=== PATIENT | female | born 1970 | race Two or more races ===

== ENCOUNTER 2025-06-29 09:03 | Outpatient (AMB) | payer OTHER, SELFPAY ==
[2025-06-29 09:05] VITALS: BMI 25.5
--- NOTE | 2025-06-29 09:05 | A.PHYSOV_ITS ---
Vital Signs 06/29/25 09:05 Height 5 ft 1 in Weight 135 lb BMI 25.5 Intake Visit Reasons: 6W FUV Intake Note: Patient is a 54 year old female in office today for her 6 week follow up. Patient was given prednisone Retort Furnace Operator Required: No Allergies No Known Allergies Allergy (Verified 06/29/25 09:06) HPI Comments Details: History of Present Illness The patient is a 54-year-old female presenting with chronic left shoulder and arm pain. 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 The pain has been persistent and worsens with increased stress levels. She has undergone cervical epidural injection and left shoulder subacromial injection, which provided some relief. Buprenorphine patches have been introduced, resulting in a 30-40% reduction in pain levels. She also uses Methocarbamol at bedtime and supplements with turmeric. A cervical spine MRI in 2020 revealed bilateral neural foraminal narrowing at the C5-C6 level. She was previously started on an 18-day prednisone taper, which helped alleviate symptoms temporarily. The pain has since returned, with a noted shift to the right side. She continues to perform physician guided home ex ercises. The patient reports right elbow pain, which is aggravated by physical activities such as writing and carrying objects. Pain Description - Onset: Persistent pain in the left shoulder and arm - Quality: Worsens with stress and physical activity - Location: Initially left shoulder and arm, now also on the right side - Exacerbating factors: Stress, writing, carrying objects Results - Imaging: Cervical spine MRI shows bilateral neural foraminal narrowing at C5- C6 [facility] Medical History (Updated 06/29/25 @ 09:35 by Pablo Banuelos DO) Lateral epicondylitis of right elbow Cervical spinal stenosis Cervical radiculitis delivery delivered (Unknown) Surgical History (Updated 06/29/25 @ 09:11 by Alejandra Coe MA) History of appendectomy (Unknown) Hx of tubal ligation (Unknown) Social History Household Members: Spouse Alcohol intake: current Alcohol intake frequency: holidays/special occasions only Patient Tobacco Use Status: Never used Tobacco Current occupational status: employed Review of Systems Narrative Review of Systems - Musculoskeletal: Reports chronic left shoulder and arm pain, tendinitis - Neurological: Denies any neurological deficits Pain in the right elbow. Denies change in bowel bladder habits, denies fever or chills, denies uncontrolled depression or suicidal ideation. Physical Exam Exam Exam: Physical Exam - Neurological: Reflexes are fine, no significant findings noted Patient ambulates without antalgia. She was able to perform heel walk and toe walk. Neurological examination of upper and lower extremities was nonfocal. She demonstrated no upper motor neuron signs. Cervical rotation and side bending were slightly restricted on the right side. Examination of the right elbow reveals tenderness with palpation over lateral epicondylitis. Pain with resisted wrist extension. Vital Signs: BMI result Body Mass Index 25.5 Assessment & Plan Assessment & Plan (1) Cervical radiculitis: Code(s): M54.12 - Radiculopathy, cervical region Category: Medical (2) Cervical spinal stenosis: Code(s): M48.02 - Spinal stenosis, cervical region Category: Medical (3) Lateral epicondylitis of right elbow: Code(s): M77.11 - Lateral epicondylitis, right elbow Category: Medical Plan Pain Management - Affect: Increased pain with stress - Analgesia: Buprenorphine patches reduce pain by 30-40% - Adverse Effects: None reported - Activities of Daily Living: Pain affects ability to perform tasks such as writing and carrying objects - Aberrant Drug Related Behaviors: None reported Plan Patient was informed and verbally consented to the use of an ambient scribe for clinic note documentation during this visit. 1. Chronic Left Shoulder And Arm Pain The patient will continue using buprenorphine patches, which have reduced pain by 30-40%. Stretching exercises and ice packs are recommended to manage inflammation and pain. A tennis elbow strap is advised to alleviate pressure on the affected area. An MRI of the cervical spine will be repeated to assess the current status of neural foraminal narrowing. 2. Bilateral Neural Foraminal Narrowing At C5-C6 The patient will undergo a repeat MRI of the cervical spine to evaluate the progression of bilateral neural foraminal narrowing at C5-C6. Pain management will continue with buprenorphine patches and Methocarbamol at bedtime. 3. Tendinitis The patient is advised to perform regular stretching exercises and use ice packs to manage tendinitis. A tennis elbow strap is recommended to alleviate pressure and prevent exacerbation of symptoms. Discussion Notes I discussed with the patient the importance of continuing with the current pain management regimen, including buprenorphine patches and Methocarbamol, to manage her chronic pain effectively. We reviewed the need for regular stretching exercises and the use of ice packs to alleviate inflammation and pain associated with tendinitis. I recommended a repeat MRI of the cervical spine to monitor the progression of neural foraminal narrowing at C5-C6. Patient Instructions - Continue using buprenorphine patches as prescribed. - Perform stretching exercises regularly to manage tendinitis. - Use ice packs to reduce inflammation and pain. - Wear a tennis elbow strap during activities to alleviate pressure. - Schedule and attend the repeat MRI of the cervical spine. Orders: Orders MR cervical spine wo con Today M48.02 - Spinal stenosis, cervical region, M54.12 - Radiculopathy, cervical region Coding Level of Care Code Est Pt Level 4 (90425) Complex EM visit Add On G2211 Diagnoses Cervical radiculitis M54.12 Cervical spinal stenosis M48.02 Lateral epicondylitis of right elbow M77.11
--- OUTSIDE RECORDS SUMMARY | 2025-06-29 15:00 | XMS_ITS | Encounter Summary ---
Author Organization [facility] Address [address] [place] [address] Care Team Providers Care Acid Bleacher Name Role Phone Enriqueta Leger MD Primary Care Provider [phone] Reason for Referral * Imaging (Routine) - Pending Review Specialty Diagnoses / Procedures Referred By Vandana t Referred To Contact Radiology Diagnoses Gallbladder polyp Biliary colic Procedures NM Hepatobiliary System Imaging W Drug Kalli Samaniego MD [address] [place] [address] Phone: tel: fax: [facility] Referral ID Status Reason Start Date Expiration Date V isits Requested Visits Authorized [id number] Pending Review 06/29/2025 06/29/2026 1 1 Reason for Visit * Reason Comments Consult SWM * Consultation (Urgent) - Authorized Specialty Diagnoses / Procedures Referred By Vandana t Referred To Contact Bariatrics Diagnoses Calculus of gallbladder without cholecystitis without obstruction Enriqueta Leger MD [address] [place] [address] Phone: tel: fax: Kalli Samaniego MD [address] [address] Phone: tel: fax: Referral ID Status Reason Start Date Expiration Date Visits Requested Visits Authorized [id number] Authorized Specialty Services Required 5 06/22/2026 1 1 Encounter Details Date Type Department Care Team (Late st Contact Info) Description 06/29/2025 3:00 PM EST Consult Bariatric Surgery - [place] [address] [place] [address] Kalli Samaniego MD [address] [place] [address] Gallbladder polyp (Primary Dx); Biliary colic Social History Tobacco Use Types Packs/Day Years Used Date Smoking Tobacco: Never Smokeless Tobacco: Never Alcohol Use Standard Drinks/Week Comments No 0 (1 standard drink = 0.6 oz pur e alcohol) social Housing Instability Answer Date Recorde d Are you worried that in the next 2 months you may not have stable housing? No 09/14/2024 Food Access & Nutrition Answer Date Rec orded Do you have access to a vari ety of food including fruits and vegetables? Yes 09/14/2024 Health Literacy Answer Date Recorded How often do you need to hav e someone help you when you read instructions, pamphlets, or other written material from your doctor or pharmacy? Never 09/14/2024 Caregiver: How often do you need to have someone help you when you read instructions, pamphlets, or other written material from your doctor or pharmacy? Not on file 09/14/2024 Financial Risk Answer Date Recorded How hard is it for you to pa y for the very basics like food, housing, medical care, and air conditioning / heating? Somewhat hard 09/14/2024 Transportation Answer Date Recorded Has the lack of transportati on kept you from meetings, work, or from getting things needed for daily living? No Has the lack of transportati on kept you from medical appointments or from getting medications? No 09/14/2024 Social Isolation Answer Date Recorded How often do you feel lonely or isolated from th ose around you? Never 09/14/2024 Food Risk Answer Date Recorded Within the past 12 months we worried whether our food would run out before we got money to buy more. Sometimes true 025 Within the past 12 months th e food we bought just didn't last and we didn't have money to get more. Never true 09/14/2024 Dependent Care Answer Date Recorded Do you need help finding or paying for care for your loved ones. For example, child support agent or elderly care for an older adult? No 09/14/2024 Education Answer Date Recorded Do you think completing more education or training, like finishing a GED, going to college, or learning a trade, would be helpful for you? N/A 09/14/2024 Employment and Income Answer Date Recor ded During the last four weeks, have you been actively looking for work? No 09/14/2024 Living Situation Answer Date Recorded What is your living situation? Unrecognized valu e 09/14/2024 Comments No Sex and Gender Information Value Date Recorded Sex Assigned at Female 07/06/2024 12:40 PM EST Legal Sex Female 1:18 AM EST Gender Identity Female 07/06/2024 12:40 PM EST Sexual Orientation Straight 07/06/2024 12 :40 PM EST documented as of this encounter Last Filed Vital Signs Vital Sign Reading Time Taken Comments Blood Pressure 120/80 06/29/2025 3:05 PM EST Pulse 85 06/29/2025 3:05 PM EST Temperature 36.9 C (98.5 F) 06/29/2025 3:05 PM EST Respiratory Rate - - Oxygen Saturation - - Inhaled Oxygen Concentration - - Weight 64.1 kg (141 lb 6.4 oz) 06/29/2025 3:05 P M EST Height 152.4 cm (5') 06/29/2025 3:05 PM EST Body Mass Index 27.62 06/29/2025 3:05 PM EST documented in this encounter Plan of Treatment Upcoming Encounters Date Type Department Care Team (Late st Contact Info) Description 06/30/2025 7:15 AM EST Appointment Radiology Department - [address] [phone] 09/26/2025 9:00 AM EST Office Visit Adult Medicine [address] [phone] Enriqueta Leger MD [address], [place] 09/28/2025 9:00 AM EST Office Visit Gastroenterology - [address] [phone] Lulu Spence, [place] [address] [address] Scheduled Orders Name Type Priority Associated Diagnoses Orde r Schedule NM Hepatobiliary System Imaging W Drug Imaging Routine Gallbladder polyp Biliary colic Expected: 06/29/2025, Expires: 06/29/2026 documented as of this encounter Visit Diagnoses Diagnosis Gallbladder polyp- Primary Cholesterolosis of gallbladder Biliary colic Calculus of gallbladder without mention of cholecystitis or obstruction documented in this encounter Orders Outpatient Referral Count Last Ordered Date Fir st Ordered Date AMB REFERRAL TO GENERAL SURGERY 1 5 documented in this encounter Additional Health Concerns Assessment Noted Time PHQ-9 Depression Total Score: 0 01/27/20 25 9:57 AM EDT documented as of this encounter Care Teams Acid Bleacher Relationship Specialty Start Date End Date Enriqueta Leger MD [address], [place] PCP - General Internal Medicine 11/19/21 documented as of this encounter
--- OUTSIDE RECORDS SUMMARY | 2025-06-29 16:53 | XMS_ITS | Encounter Summary ---
Author Organization [facility] Address [address] [place] [address] Care Team Providers Care Upper Marker Name Role Phone Mary Lou Starks MD Primary Care Provider Un available Enriqueta Leger MD Primary Care Provider [phone] Encounter Details Date Type Department Care Team Description 07/20/2015 Release of Information Medical Records [address] [place] [id number] Abstract, Provider Social History Tobacco Use Types Packs/Day Years Used Date Smoking Tobacco: Never Smokeless Tobacco: Never Alcohol Use Standard Drinks/Week Comments No 0 (1 standard drink = 0.6 oz pur e alcohol) Sex Assigned at Date Recorded Female 03/11/2021 3:18 PM E DT Job Start Date Occupation Industry Not on file Not on file Not on file documented as of this encounter Plan of Treatment Not on file documented as of this encounter Visit Diagnoses Not on filedocumented in this encounter Additional Health Concerns Infection Onset Date Last Indicated Resolved Time COVID-19 04/29/2022 04/30/2022 documented as of this encounter Care Teams Upper Marker Relationship Specialty Start Date End Date Mary Lou Starks MD PCP - General Internal Medicine 09/21/14 Enriqueta Leger MD [address] [place] [address] PCP - General Internal Medicine 11/19/21 documented as of this encounter
--- OUTSIDE RECORDS SUMMARY | 2025-06-29 16:53 | XMS_ITS | Encounter Summary ---
Author Organization [facility] Address [address] [place] [address] Care Team Providers Care Silviculturist Name Role Phone Mary Lou Starks MD Primary Care Provider Un available Enirqueta Leger MD Primary Care Provider [phone] Encounter Details Date Type Department Care Team Description 03/23/2015 Air Defense Control Officer Report Medical Records [address] [place] [address] Zachery Calvo MD Social History Tobacco Use Types Packs/Day Years [...] documented as of this encounter Care Teams Silviculturist Relationship Specialty Start Date End Date Mary Lou Starks MD PCP - General Internal Medicine 09/21/14 Enriqueta Leger MD [address] [place] [phone] PCP - General Internal Medicine 11/19/21 documented as of this encounter
--- OUTSIDE RECORDS SUMMARY | 2025-06-29 16:53 | XMS_ITS | Encounter Summary ---
Author Organization [employer] [facility] Address [address] [place] [address] Care Team Providers Care Used Car Make Ready Worker Name Role Phone Enriqueta Leger MD Primary Care Provider [phone] Encounter Details Date Type Department Care Team Description 09/25/2022 Field Marketing Manager Report Medical Records [address] [place] [address] Maty Bennett PA Social History Tobacco Use Types Packs/Day Years Used Date Smoking Tobacco: Never Smokeless Tobacco: Never Alcohol Use Standard Drinks/Week Comments No 0 (1 standard drink = 0.6 oz pur e alcohol) occ Sex Assigned at Date Recorded Female 03/11/2021 3:18 PM E DT Job Start Date Occupation Industry Not on file Not on file Not on file COVID-19 Exposure Response Date Recorded In the last 10 days, have yo u been in contact with someone who was confirmed or suspected to have Coronavirus/COVID-19? No / Unsure 09/12/2022 8:40 AM EST documented as of this encounter Plan of Treatment Not on file documented as of this encounter Visit Diagnoses Not on filedocumented in this encounter Additional Health Concerns Infection Onset Date Last Indicated Resolved Time COVID-19 04/29/2022 04/30/2022 documented as of this encounter Care Teams Used Car Make Ready Worker Relationship Specialty Start Date End Date Enriqueta Leger MD [address] [place] [phone] PCP - General Internal Medicine 11/19/21 documented as of this encounter
--- OUTSIDE RECORDS SUMMARY | 2025-06-29 16:53 | XMS_ITS | Encounter Summary ---
Author Organization [facility] Address [address] [place] [address] Care Team Providers Care Operational Communication Chief Name Role Phone Enriqueta Leger MD Primary Care Provider [phone] Reason for Visit * Reason Onset Date Comments Mychart Rx Refill 09/10/2022 Encounter Details Date Type Department Care Team Description 09/10/2022 Refill Adult Medicine [address] [phone] Enriqueta Leger MD [address] [place] [phone] Mychart Rx Refill Social History Tobacco Use Types Packs/Day Years [...] AM EST documented as of this encounter Miscellaneous Notes * Telephone Encounter - Zoltan Rivera M.A. - 09/10/2022 10:10 AM EST Lab Results Component Value Date NA 139 12/04/2021 K 4.0 12/04/2021 CO2 26 12/04/2021 CL 106 12/04/2021 BUN 9 12/04/2021 CREAT 0.62 12/04/2021 GLU 109 12/04/2021 CA 9.4 12/04/2021 GFR > 60 12/04/2021 GERARDO w/PCP 12/04/2021 Next OV w/PCP 09/12/2022 Pt nds to continue w/future appt prior to further refills. documented in this encounter Plan of Treatment Not on file documented as of this encounter Visit Diagnoses Diagnosis Seasonal allergies Allergic rhinitis, cause unspecified documented in this encounter Additional Health Concerns Infection Onset Date Last Indicated Resolved Time COVID-19 04/29/2022 04/30/2022 documented as of this encounter Care Teams Operational Communication Chief Relationship Specialty Start Date End Date Enriqueta Leger MD [address] [place] [phone] PCP - General Internal Medicine 11/19/21 documented as of this encounter
--- OUTSIDE RECORDS SUMMARY | 2025-06-29 16:54 | XMS_ITS | Encounter Summary ---
Author Organization [facility] Address [address] [place] [address] Care Team Providers Care Canvas Cutter Hand Name Role Phone Mary Lou Starks MD Primary Care Provider Un available Enriqueta Leger MD Primary Care Provider [phone] Reason for Visit * Reason Onset Date Comments Orders Call 07/08/2016 Encounter Details Date Type Department Care Team Description 07/08/2016 Telephone Medicine/Pediatrics - [address] [phone] Mary Lou Starks MD Orders Call Social History Tobacco Use Types Packs/Day Years Used Date Smoking Tobacco: Never Smokeless Tobacco: Never Alcohol Use Standard Drinks/Week Comments No 0 (1 standard drink = 0.6 oz pur e alcohol) Sex Assigned at Date Recorded Female 03/11/2021 3:18 PM E DT Job Start Date Occupation Industry Not on file Not on file Not on file documented as of this encounter Miscellaneous Notes * Telephone Encounter - Maureen LujanPChristianaNChristiana - 07/08/2016 1:09 PM EST Radha notified * Telephone Encounter - Mary Lou Starks MD - 07/08/2016 12:58 PM EST Cierra, thanks. * Telephone Encounter - Maureen LujanPChristianaNChristiana - 07/08/2016 9:08 AM EST Order set up * Telephone Encounter - Allison Vicente - 07/08/2016 9:03 AM EST Patient had a tb test done at the [facility] in [email or web address] and was read as positive, patient received the bcg immunization as a baby in [facility] Patient needs to have chest xray in order for certification for [employer] VEHICLE [employer]ACER Please review and place order documented in this encounter Plan of Treatment Not on file documented as of this encounter Results * CHEST X-RAY, TWO VIEWS (07/09/2016 2:54 PM EST) 07/09/2016 3:13 PM EST Impressions BHARGAV FULLER OTHER EXTERNAL - 07/09/2016 3:13 PM EST IMPRESSION: No acute cardiopulmonary pathology. Narrative WHITE DANAYD OTHER EXTERNAL - 07/09/2016 3:13 PM EST CHEST, TWO VIEWS HISTORY: +PPD. Technique: Frontal and lateral views of the chest. Prior study: Not available. FINDINGS: The lungs are clear. No pleural effusion is seen. No pneumothorax is seen. The cardiomediastinal silhouette is within normal limits. No acute or aggressive appearing bony abnormalities are seen. Procedure Note Tash Corona MD - 07/09/2016 CHEST, TWO VIEWS HISTORY: +PPD. Technique: Frontal and lateral views of the chest. Prior study: Not available. FINDINGS: The lungs are clear. No pleural effusion is seen. No pneumothorax is seen.The cardiomediastinal silhouette is within normal limits. No acute oraggressive appearing bony abnormalities are seen. IMPRESSION: No acute cardiopulmonary pathology. 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
--- OUTSIDE RECORDS SUMMARY | 2025-06-29 16:54 | XMS_ITS | Encounter Summary ---
Author Organization [facility] Address [address] [place] [address] Care Team Providers Care Plastic Top Assembler Name Role Phone Enriqueta Leger MD Primary Care Provider [phone] Encounter Details Date Type Department Care Team Description 07/28/2023 Pt. Non Urgent Medical Question Gastroenterology - [place] [address] [facility] [address] [place] [address] Ziggy Chance PA-C Calculus of gallbladder without cholecystitis without obstruction (Primary Dx) Social History Tobacco Use Types Packs/Day Years [...] documented as of this encounter Results * US SOFT TISSUE ABDOMEN/BACK, LIMITED ABD (10/17/2023 8:42 AM EST) 10/17/2023 10:5 6 AM EST Narrative [place] OTHER EXTERNAL - 10/17/2023 11:02 AM EST Limited abdominal ultrasound. History gallbladder polyps. Common biliary duct stone. Comparison with previous examination from 07/16/2023. Examination is somewhat limited due to body habitus. Gallbladder was visualized with 2 polyps measuring 0.6 x 0.5 x 0.6 cm and 0.5 0.4 x 0.6 cm. Previously single polyp was identified measuring 0.4 x 0.3 x 0.3 cm. There is no pericholecystic fluid collection. Common biliary duct measures up to 5 mm. There is a stone within the common biliary duct measuring approximately 0.7 cm in length. There is no intrahepatic biliary ducts dilatation. Liver measures 18.6 cm in long axis. It revealed coarse increased echogenicity which could be due to steatosis or chronic hepatocellular disease. Again noted is hypoechoic mass in the right lobe of the liver which on today's study measures 1.8 x 1.5 x 1.7 cm, prior measurements are 1.7 x 1.6 x 2.3 cm. There is normal flow in the portal vein. Pancreatic tail is obscured due to bowel gas artifact. Visualized portion is normal. Right kidney is unremarkable. CONCLUSIONS: 2 gallbladder polyps. Stable stone in the common biliary duct. Abnormal echogenicity of the liver which could be due to steatosis or chronic hepatocellular disease. Stable hypoechoic mass in the right lobe of the liver. Procedure Note Tash Corona MD - 10/17/2023 Limited abdominal ultrasound. History gallbladder polyps. Common biliary duct stone. Comparison withprevious examination from 07/16/2023. Examination is somewhat limited due to body habitus. Gallbladder was visualized with 2 polyps measuring 0.6 x 0.5 x 0.6 cm and0.5 0.4 x 0.6 cm. Previously single polyp was identified measuring 0.4 x 0.3 x 0.3 cm.There is no pericholecystic fluid collection. Common biliary duct measures up to 5mm. There is a stone within the common biliary duct measuring approximately 0.7 cm in length.There is no intrahepatic biliary ducts dilatation. Liver measures 18.6 cm in longaxis. It revealed coarse increased echogenicity which could be due to steatosis or chronichepatocellular disease. Again noted is hypoechoic mass in the right lobe of the liverwhich on today's study measures 1.8 x 1.5 x 1.7 cm, prior measurements are 1.7 x 1.6 x 2.3 cm.There is normal flow in the portal vein. Pancreatic tail is obscured due to bowel gasartifact. Visualized portion is normal. Right kidney is unremarkable. CONCLUSIONS: 2 gallbladder polyps. Stable stone in the common biliaryduct. Abnormal echogenicity of the liver which could be due to steatosis or chronichepatocellular disease. Stable hypoechoic mass in the right lobe of the liver. Ziggy Chance PA-C [facility]ARG[facility]ULL[facility] OTHER EXTERNAL documented in this encounter Visit Diagnoses Diagnosis Calculus of gallbladder without cholecystitis without obstruction- Primary Calculus of gallbladder without mention of cholecystitis or obstruction Calculus of gallbladder without cholecystitis without obstruction Calculus of gallbladder without mention of cholecystitis or obstruction documented in this encounter Additional Health Concerns Infection Onset Date Last Indicated Resolved Time COVID-19 04/29/2022 04/30/2022 documented as of this encounter Care Teams Plastic Top Assembler Relationship Specialty Start Date End Date Enriqueta Leger MD [address] [place] [id number] PCP - General Internal Medicine 11/19/21 documented as of this encounter
--- OUTSIDE RECORDS SUMMARY | 2025-06-29 16:54 | XMS_ITS | Encounter Summary ---
Author Organization [facility] Address [address] [place] [address] Care Team Providers Care Ice Rink Attendant Name Role Phone Enriqueta Leger MD Primary Care Provider [phone] Encounter Details Date Type Department Care Team Description 09/11/2023 Animal Cruelty Investigator Report Medical Records [address] [place] [address] Pablo Banuelos DO Social History Tobacco Use Types Packs/Day Years [...] documented as of this encounter Care Teams Ice Rink Attendant Relationship Specialty Start Date End Date Enriqueta Leger MD [address] [place], [place] [phone] PCP - General Internal Medicine 11/19/21 documented as of this encounter
--- OUTSIDE RECORDS SUMMARY | 2025-06-29 16:54 | XMS_ITS | Encounter Summary ---
Author Organization [facility] Address [address] [place] [address] Care Team Providers Care Supervisor Stage Carpentry Name Role Phone Enriqueta Leger MD Primary Care Provider [phone] Encounter Details Date Type Department Care Team Description 10/11/2022 Transfer Records Medical Records [address] [place] [address] [facility] [address] [place] [address] [facility] [address] [place] [address] Social History Tobacco Use Types Packs/Day Years [...] suspected to have Coronavirus/COVID-19? No / Unsure 10/09/2022 8:44 AM EST documented as of this encounter Plan of Treatment Not on file documented as of this encounter Visit Diagnoses Not on filedocumented in this encounter Additional Health Concerns Infection Onset Date Last Indicated Resolved Time COVID-19 04/29/2022 04/30/2022 documented as of this encounter Care Teams Supervisor Stage Carpentry Relationship Specialty Start Date End Date Enriqueta Leger MD [address] [place] [address] PCP - General Internal Medicine 11/19/21 documented as of this encounter
--- OUTSIDE RECORDS SUMMARY | 2025-06-29 16:54 | XMS_ITS | Encounter Summary ---
Author Organization [facility] [employer] [facility] Address [address] [place] [address] Care Team Providers Care Hearth Feeder Name Role Phone Enriqueta Leger MD Primary Care Provider [phone] Encounter Details Date Type Department Care Team Description 06/12/2023 Hospital Medical Records [address] [place] [address] Pablo Banuelos DO Social History Tobacco Use [...] documented as of this encounter Care Teams Hearth Feeder Relationship Specialty Start Date End Date Enriqueta Leger MD [address] [place] [address] [phone] PCP - General Internal Medicine 11/19/21 documented as of this encounter
--- OUTSIDE RECORDS SUMMARY | 2025-06-29 16:54 | XMS_ITS | Encounter Summary ---
Author Organization [facility] Address [address] [place] [address] Care Team Providers Care National Investigative Producer Name Role Phone Mary Lou Starks MD Primary Care Provider Un available Enriqueta Leger MD Primary Care Provider [phone] Encounter Details Date Type Department Care Team Description 08/07/2018 Hat Steamer Report Medical Records [address] [place] [address] Cody Carrasco MD Social History Tobacco Use Types Packs/Day [...] documented as of this encounter Care Teams National Investigative Producer Relationship Specialty Start Date End Date Mary Lou Starks MD PCP - General Internal Medicine 09/21/14 Enriqueta Leger MD [address] [place] [address] [phone] PCP - General Internal Medicine 11/19/21 documented as of this encounter
--- OUTSIDE RECORDS SUMMARY | 2025-06-29 16:54 | XMS_ITS | Encounter Summary ---
Author Organization [facility] Address [address] [place] [address] Care Team Providers Care Laundry Aide Name Role Phone Enriqueta Leger MD Primary Care Provider [phone] Encounter Details Date Type Department Care Team Description 02/22/2023 Walk In Clinic Visit Medical Records [address] [place] [address] Abstract, Provider Social History Tobacco Use Types [...] documented as of this encounter Care Teams Laundry Aide Relationship Specialty Start Date End Date Enriqueta Leger MD [address] [place] [phone] PCP - General Internal Medicine 11/19/21 documented as of this encounter
--- OUTSIDE RECORDS SUMMARY | 2025-06-29 16:54 | XMS_ITS | Encounter Summary ---
Author Organization [facility] Address [address] [place] [address] Care Team Providers Care Lining Setter Name Role Phone Enriqueta Leger MD Primary Care Provider [phone] Encounter Details Date Type Department Care Team Description 12/10/2023 Ice Cream Vendor Report Medical Records [address] [place] [address] Pablo Banuelos DO Social History Tobacco Use [...] documented as of this encounter Care Teams Lining Setter Relationship Specialty Start Date End Date Enriqueta Leger MD [address] [place], [place] [phone] PCP - General Internal Medicine 11/19/21 documented as of this encounter
--- OUTSIDE RECORDS SUMMARY | 2025-06-29 16:55 | XMS_ITS | Clinical Summary ---
Author Organization [facility] [address] [facility] Address [address] [place] [address] Phone Care Team Providers Care Cryptographic Vulnerability Analyst Name Role Phone Enriqueta Leger MD Primary Care Provider [phone] Allergies No known active allergies Medications ketotifen fumarate (Alaway) 0.035 % ophthalmic solution INSTILL 1 DROP INTO AFFECTED EYE TWICE A DAY (OTC NOT COVERED) 4 Active albuterol HFA (PROAIR HFA ; PROVENTIL HFA ; VENTOLIN HFA) 90 mcg/actuation inhaler Inhale 2 Puffs into the lungs every 4 hours as needed for Cough, Wheezing or Shortness of Breath. 0 Active azelastine (ASTELIN) 137 mcg (0.1 %) nasal spray 2 Sprays by Each Nare route 2 times daily. Use in each nostril as directed 1 Active buprenorphine (BUTRANS) 7.5 mcg/hour Place 1 patch on the skin 1 (one) time per week. Active cetirizine (ZyrTEC) 10 mg tablet Take 1 tablet (10 mg total) by mouth 1 (one) time each day. Active miscellaneous medical supply misc CPAP Historical (HISTORICAL CPAP)- Inhale into the lungs at bedtime. Active fluticasone propionate (FLONASE) 50 mcg/actuation nasal spray Administer 1 spray into affected nostril(s) 1 (one) time each day. 1 Active montelukast (SINGULAIR) 10 mg tablet Take 1 tablet (10 mg total) by mouth at bedtime. 3 Active omeprazole (PriLOSEC) [address] capsule Active mv-min/iron/folic /calcium/vitK (WOMEN'S MULTIVITAMIN ORAL) Take by mouth. Activ e gabapentin (NEURONTIN) 300 mg capsule Take 1 capsule (300 mg total) by mouth at bedtime. 90 each 1 5 12/20/19 26 Active Active Problems Problem Noted Date Diagnosed Date Varicose veins of legs 09/19/2024 SAIGE (obstructive sleep apnea) 05/28/2023 Allergic rhinitis 12/04/2021 COVID-19 07/11/2021 Cervical spondylosis 05/29/2020 Gastroesophageal reflux disease without esophagi tis 05/29/2020 Osteophyte of cervical spine 05/29/2020 Elevated LFTs 01/27/2018 Low back pain 10/21/2014 Fatty liver Gallbladder polyp History of BCG vaccination Overview (09/19/2024): had pos PPD at work, negative CXR done at work. History of PCOS Gallstone Functional dyspepsia Resolved Problems Problem Noted Date Diagnosed Date Resolved Date Known medical problems 02/24/201509/19 Overview (07/13/2024): Varicose veins Encounters Date Type Department Care Team Description 06/29/2025 3:00 PM EST Consult Bariatric Surgery - [address] [place] [address] Kalli Samaniego MD Gallbladder polyp (Primary Dx); Biliary colic 06/22/2025 4:30 PM EST Office Visit Adult Medicine [address] [phone] Enriqueta Leger MD Cervical radiculopathy (Primary Dx); Calculus of gallbladder without cholecystitis without obstruction; Gastroesophageal reflux disease without esophagitis 05/04/2025 11:15 AM EDT Office Visit Adult [address] [phone] Damaris Bautista PA Upper respiratory tract infection, unspecified type (Primary Dx) from Last 3 Months Immunizations Immunization Administration Dates Next Due Influenza Quadravalent, MDCK , 0.5ml, preservative free (Flucelvax) 6mo and older 06/16/2019 Influenza Quadravalent, MDCK , 0.5ml, with preservative (Flucelvax) 6mo and older 04/29/2018,05/06/2017 Influenza trivalent, 0.5mL, preservative free (Fluarix; FluLaval; Fluzone) ages 6mo and older (Afluria) 3 years and older 06/23/2023,06/11/2022,05/13/2020,2015,05/04/2015,05/28/2014 Moderna SARS-CoV-2 COVID-19, mRNA, LNP-S, preservative free 09/15/2021,10/12/2020,09/06/2020 Tdap Tetanus diptheria acell ular pertussis (Boostrix; Adacel) 7yo and older 09/21/2024,10/18/2014 Zoster recombinant (Shingrix ) 19yo and older 06/26/2022,06/14/2022,04/14/2022 Surgical History Surgery Date Site/Laterality Comments SECTION 08/11/2008 x3 APPENDECTOMY age 19 TUBAL LIGATION 08/11/2008 DILATION AND CURETTAGE OF UTERUS SCREENING MAMMOGRAM 09/12/2023 Bilateral COLONOSCOPY 03/23/2024 Medical History Medical History Date Comments History of PCOS History of BCG vaccination 07/2016 had p os PPD at work, negative CXR done at work. Allergic rhinitis 12/04/2021 Fatty liver Gallbladder polyp Gallstone SIAGE (obstructive sleep apnea) Functional dyspepsia Varicose veins of legs 09/19/2024 Family History Medical History Relation Name Comments Asthma Daughter Diabetes Father Other: kidney cancer Maternal Grandfather Dementia Maternal Grandmother HTN, DM Thyroid disease Mother Diabetes Other paternal aunt a nd uncle. Asthma Paternal Grandfather SD Asthma Paternal Grandmother Other: cerebreal palsy Son Breast cancer Neg Hx Colon cancer Neg Hx Ovarian cancer Neg Hx Uterine cancer Neg Hx Relation Name Status Comments Daughter Alive Father Alive Maternal Grandfather Maternal Grandmother Mother Alive Other Alive Paternal Grandfather Paternal Grandmother Son Alive Social History Tobacco Use Types Packs/Day Years Used Date Smoking Tobacco: Never Smokeless Tobacco: Never Tobacco Cessation:Counseling Given: Not Answered Alcohol Use Standard Drinks/Week Comments No 0 [...] care for your loved ones. For example, children's choir director or elderly care for an older adult? [...] Orientation Straight 07/06/2024 12 :40 PM EST Obstetrics History Para Term AB IAB SAB Ectopic Multiple Livin g Live Births 3 3 3 3 Date Outcome GA Total Labor Labor/2nd/3rd Weight Sex Type Anes PTL Donna A1 A5 Name Clin Term Term Term Last Filed Vital Signs Vital Sign Reading Time Taken Comments Blood Pressure 120/80 06/29/2025 3:05 PM EST Pulse 85 06/29/2025 3:05 PM EST Temperature 36.9 C (98.5 F) 06/29/2025 3:05 PM EST Respiratory Rate 16 06/22/2025 4:21 PM EST Oxygen Saturation 97% 06/22/2025 4:21 PM EST Inhaled Oxygen Concentration - - Weight 64.1 kg (141 lb 6.4 oz) 06/29/2025 3:05 P M EST Height 152.4 cm (5') 06/29/2025 3:05 PM EST Body Mass Index 27.62 06/29/2025 3:05 PM EST Plan of Treatment Upcoming Encounters Date Type Department Care Team (Late st Contact Info) Description 06/30/2025 7:15 AM EST Appointment Radiology Department - [address] [phone] 09/26/2025 9:00 AM EST Office Visit Adult Medicine [address] [phone] Enriqueta Leger MD [address] [place] [address] 09/28/2025 9:00 AM EST Office Visit Gastroenterology - [address] [phone] Lulu Spence, ADAMA [address] [facility] [address] [place] [address] Health Maintenance Due Date Last Done Comments Hepatitis B Vaccines (1 of 3 - 19+ 3-dose series) 12/07/1990 Pneumococcal Vaccine: 50+ Years (1 of 1 - PCV) 12/07/2021 HIV Screening 07/20/2022 Hepatitis C Screening 07/20/2022 COVID-19 Vaccine ( - season) 2025 09/15/2021, 10/12/2020, 09/06/2020 Influenza Vaccine (#1) 2025 , 06/11/2022, 05/13/2020, Additional history exists Social Influencers of Health Screening 09/14/2025 09/14/2024 Breast Cancer Screening 10/02/2026 10/02/19, 09/12/2023, 09/12/2023, Additional history exists Cholesterol Screening (Lipid Panel) 05/18/2029 05/18/2024, 05/18/2024 Cervical Cancer Screening: HPV 02/02/2030 02/02/2025, 07/20/2020 Colorectal Cancer Screening: Colonoscopy 03/23/2034 03/23/2024 DTaP,Tdap,and Td Vaccines (3 - Td or Tdap) 09/21/2034 09/21/2024, 10/18/2014 RSV Immunization Adult Patients (1 - 1-dose 75+ series) 12/07/2046 Zoster Vaccines Completed 06/26/2022, 110 11/2021, 04/14/2022 Depression Screening Completed 01/26/2025 HIB Vaccines Aged Out No longer eligi ble based on patient's age to complete this topic HPV Vaccines Aged Out No longer eligi ble based on patient's age to complete this topic Hepatitis A Vaccines Aged Out No long er eligible based on patient's age to complete this topic IPV Vaccines Aged Out No longer eligi ble based on patient's age to complete this topic MMR Vaccines Aged Out No longer eligi ble based on patient's age to complete this topic Meningococcal ACWY Vaccine Aged Out N o longer eligible based on patient's age to complete this topic Meningococcal B Vaccine Aged Out No l onger eligible based on patient's age to complete this topic RSV Immunization Patients Under 20 months Aged Out No longer eligible based on patient's age to complete this topic Varicella Vaccines Aged Out No longer eligible based on patient's age to complete this topic Procedures Procedure Name Priority Date/Time Associated Diagnosis Comments [id number], RSV, FLU A AND B QUALITATIVE RT-PCR, LOCAL REFERENCE LAB Routine 05/04/2025 11:20 AM EDT Upper respiratory tract infection, unspecified type HPV WITH REFLEX GENOTYPE Routine 02/02/2025 9:46 AM EDT Screening for cervical cancer MG MAMMO DIGITAL SCREENING W TRUMAN BILAT Routine 10/02/2024 10:17 AM EST Encounter for screening mammogram for breast cancer LIPID PANEL Routine 05/18/2024 HM COLONOSCOPY Routine 03/23/2024 from Last 3 Months or Most Recently Relevant to Health Maintenance Results * [id number], RSV, Influenza A and B qualitative RT-PCR (05/04/2025 11:20 AM EDT) SARS COV-2 Not Detected Not Detected LAB MOLECULAR DIAGNOSTICS METHOD 05/04/2025 2:31 PM EDT [facility] Comment: Disclaimer: The manner in which this information is used to guide patient care is the responsibility of the healthcare provider. Testing was performed using the [employer] Alinity m SARS-CoV-2 test. This test has been authorized by FDA under an Emergency Use Authorization (EUA). This test is only authorized for the duration of time the declaration that circumstances exist justifying the authorization of the emergency use of in vitro diagnostic tests for detection of SARS-CoV-2 virus and/or diagnosis of COVID-19 infection under section 564(b)(1) of the Act, 21 U.S.C. 360bbb- 3(b)(1), unless the authorization is terminated or revoked sooner. Fact sheet for Healthcare Providers can be found at: https://www.fda.gov/media/412786/download Fact sheet for Patients can be found at: https://www.fda.gov/media/296174/download Influenza A PCR Not Detected Not Detected LAB MOLECULAR DIAGNOSTICS METHOD 05/04/2025 2:31 PM EDT [facility] Influenza B PCR Not Detected Not Detected LAB MOLECULAR DIAGNOSTICS METHOD 05/04/2025 2:31 PM EDT [facility] RSV PCR Not Detected Not Detected LAB MOLECULAR DIAGNOSTICS METHOD 05/04/2025 2:31 PM EDT [facility] Swab Nasopharyngeal structure / Unknown Non-blood Collection / Unknown 05/04/2025 11:20 AM EDT 05/04/2025 11:20 AM EDT Damaris CLAROS LAB MICROBIOLOGY - GENERAL OR DERABLES Final Result [facility] [address] [place] [address], [place] [phone] * HPV with reflex genotype (02/02/2025 9:46 AM EDT) HPV Negative Negative LAB MICROBIOLOGY METHOD 02/03/2025 1:51 PM EDT [facility] Brushing/Spatula Cervix uteri structure / Unknown 02/02/2025 9:46 AM EDT 02/03/2025 6:24 AM EDT April Mcqueen CNM LAB MOLECULAR DIAGNOSTICS ORDER JARON Final Result [facility] [address] [place] [address], [place] [phone] * MG Mammo Digital Screening w Truman bilat (10/02/2024 10:17 AM EST) Anatomical Region Laterality Modality Breast Bilateral Mammography 10/04/2024 5:40 PM EST Impressions 10/04/2024 5:41 PM EST No mammographic evidence of malignancy. BREAST DENSITY: C - The breasts are heterogeneously dense which may obscure small masses. BI-RADS CATEGORY: 1 - NEGATIVE RECOMMENDATION: Screening bilateral mammogram is recommended in 1 year. MAMMO LOCATION: [facility], [address] [place] [address], [id number], . -------- FINAL REPORT -------- Dictated By: Yamilet Arciniega Dictated Date: 10/04/2024 17:40 ET Assigned Physician: Yamilet Arciniega Reviewed and Electronically Signed By: Yamilet Arciniega Signed Date: 10/04/2024 17:41 ET Workstation ID: [id number] Transcribed By: Self Edit Transcribed Date: 10/04/2024 17:40 ET Narrative 10/04/2024 5:41 PM EST EXAM: Screening Mammogram CLINICAL: 53 years old, Female, routine annual exam. COMPARISON: 09/12/2023 and as far back as 07/18/2020 TECHNIQUE: Bilateral MLO and CC views were obtained digitally with 3-D mammogram (digital breast tomosynthesis). Computer-aided detection was utilized in evaluation of this exam (CAD). FINDINGS: No new suspicious mass, architectural distortion, or suspicious calcifications. Procedure Note Yamilet Arciniega MD - 10/04/2024 EXAM: Screening Mammogram CLINICAL: 53 years old, Female, routine annual exam. COMPARISON: 09/12/2023 and as far back as 07/18/2020 TECHNIQUE: Bilateral MLO and CC views were obtained digitally with 3-Dmammogram (digital breast tomosynthesis). Computer-aided detection wasutilized in evaluation of this exam (CAD). FINDINGS: No new suspicious mass, architectural distortion, or suspiciouscalcifications. IMPRESSION: No mammographic evidence of malignancy. BREAST DENSITY: C - The breasts are heterogeneously dense which mayobscure small masses. BI-RADS CATEGORY: 1 - NEGATIVE RECOMMENDATION: Screening bilateral mammogram is recommended in 1 year. MAMMO LOCATION: [facility], [address] [place] [address], [id number], . -------- FINAL REPORT -------- Dictated By: Yamilet Arciniega Dictated Date: 10/04/2024 17:40 ET Assigned Physician: Yamilet Arciniega Reviewed and Electronically Signed By: Yamilet Arciniega Signed Date: 10/04/2024 17:41 ET Workstation ID: [id number] Transcribed By: Self Edit Transcribed Date: 10/04/2024 17:40 ET Enriqueta Leger MD IMG BI PROCEDURES Final Result * Lipid panel (05/18/2024) LDL/HDL Ratio 3 0 - 4 Triglycerides 114 0 - 150 mg/dL Cholesterol 159 0 - 200 mg/dL HDL 57 >=40 mg/dL LDL Cholesterol 80 0 - 100 mg/dL Blood Venous blood specimen / Unknown Historical Provider LAB BLOOD ORDERABLES Ave l Result * Colonoscopy (03/23/2024) Colonoscopy no interpretation , abstracted Anatomical Region Laterality Modality Other Historical Provider HEALTH MAINTENANCE Final Result from Last 3 Months or Most Recently Relevant to Health Maintenance Insurance [facility] [employer] PLANS Care Teams Cryptographic Vulnerability Analyst Relationship Specialty Start Date End Date Enriqueta Leger MD [address] [place] [phone] PCP - General Internal Medicine 11/19/21
--- OUTSIDE RECORDS SUMMARY | 2025-06-29 16:55 | XMS_ITS | Encounter Summary ---
Author Organization [facility] Address [address] [place] [address] Care Team Providers Care Lna Name Role Phone Mary Lou Starks MD Primary Care Provider Un available Enriqueta Leger MD Primary Care Provider [phone] Reason for Referral * EXTERNAL (Routine) - Authorized/Booked Specialty Diagnoses / Procedures Referred By Contac t Referred To Contact Physical Therapy Procedures REFERRAL TO PHYSICAL THERAPY Melvin Lan PA-C [facility] Referral ID Status Reason Start Date Expiration Date V isits Requested Visits Authorized [id number] Authorized/B ooked 11/03/2020 12/04/2020 1 1 Encounter Details Date Type Department Care Team Description 11/03/2020 Orders Only Physiatry - [address] [address] Melvin Lan PA-C Cervical radiculopathy (Primary Dx); Spondylosis of cervical spine Social History Tobacco Use Types Packs/Day Years [...] Exposure Response Date Recorded In the last month, have you been in contact with someone who was confirmed or suspected to have Coronavirus / COVID-19? No / Unsure 10/04/2020 10:03 AM EST documented as of this encounter Plan of Treatment Not on file documented as of this encounter Visit Diagnoses Diagnosis Cervical radiculopathy- Primary Brachial neuritis or radiculitis nos Spondylosis of cervical spine documented in this encounter Additional Health Concerns Infection Onset Date Last Indicated Resolved Time COVID-19 04/29/2022 04/30/2022 documented as of this encounter Care Teams Lna Relationship Specialty Start Date End Date Mary Lou Starks MD PCP - General Internal Medicine 09/21/14 Enriqueta Leger MD [address] [place] [address] PCP - General Internal Medicine 11/19/21 documented as of this encounter
--- OUTSIDE RECORDS SUMMARY | 2025-06-29 16:55 | XMS_ITS | Encounter Summary ---
Author Organization [facility] [facility] Address [address] [place] [address] Care Team Providers Care Turf Manager Name Role Phone Mary Lou Starks MD Primary Care Provider Un available Enriqueta Leger MD Primary Care Provider [phone] Encounter Details Date Type Department Care Team Description 10/19/2014 Release of Information Medical Records [address] [place] [id number] Abstract, Provider Social History Tobacco Use Types Packs/Day Years Used Date Smoking Tobacco: Never Alcohol Use Standard Drinks/Week Comments [...] documented as of this encounter Care Teams Turf Manager Relationship Specialty Start Date End Date Mary Lou Starks MD PCP - General Internal Medicine 09/21/14 Enriqueta Leger MD [address] [place] [address] PCP - General Internal Medicine 11/19/21 documented as of this encounter
--- OUTSIDE RECORDS SUMMARY | 2025-06-29 16:55 | XMS_ITS | Encounter Summary ---
Author Organization [facility] Address [address] [place] [address] Care Team Providers Care Office Services Manager Name Role Phone Mary Lou Starks MD Primary Care Provider Un available Enriqueta Leger MD Primary Care Provider [phone] Encounter Details Date Type Department Care Team Description 11/03/2020 Pt. Non Urgent Medic al Question Physiatry - [address] [phone] Melvin Lan PA-C Social History Tobacco Use Types Packs/Day Years [...] documented as of this encounter Care Teams Office Services Manager Relationship Specialty Start Date End Date Mary Lou Starks MD PCP - General Internal Medicine 09/21/14 Enriqueta Leger MD [address] [place] [address] PCP - General Internal Medicine 11/19/21 documented as of this encounter
--- OUTSIDE RECORDS SUMMARY | 2025-06-29 16:55 | XMS_ITS | Encounter Summary ---
Author Organization [employer] [facility] Address [address] [place] [address] Care Team Providers Care Automation Qa Lead Name Role Phone Enriqueta Leger MD Primary Care Provider Reason for Visit * Reason Onset Date Comments Medication 03/09/2024 Encounter Details Date Type Department Care Team Description 03/09/2024 Refill Gastroenterology - [address] [place] [phone] Trinh Shane MD [address] [place] [address] [phone] Medication Social History Tobacco Use Types Packs/Day Years [...] documented as of this encounter Care Teams Automation Qa Lead Relationship Specialty Start Date End Date Enriqueta Leger MD [address] [place] [address] PCP - General Internal Medicine 11/19/21 documented as of this encounter
--- OUTSIDE RECORDS SUMMARY | 2025-06-29 16:55 | XMS_ITS | Data Portability ---
Author Organization [place] [facility] Address [address] [address] Care Team Providers Care Airport Utility Worker Name Role Phone DRAGAN DELGADO Primary Care Provider [phone] Assessment No assessment recorded. Plan of Treatment Reminders Order Date Submit Date Provider Last Modified By Organization Details Last Modified Time Details Appointments None recorded. Lab None recorded. Referral None recorded. Procedures None recorded. Surgeries None recorded. Imaging None recorded. Medication Orders azelastine 137 mcg (0.1 %) nasal spray 2023 024 ERIN [id number], [address] [place], [address], 4 15:11:24 Alaway 0.025 % (0.035 %) eye drops 2023 024 [email or web address] [id number], [address] [place], [address], 4 14:40:06 Patient TargetsNo targets recorded. Patient InstructionsNo instructions recorded. Reason for Referral None Reported. Results Created Date Observation Date Name Description Value Unit Range Abnormal Flag Note LastModifiedBy Organization Detail LastModifiedTime 03/30/2009/11/2018 imagi ng/di agnos tic resul t No observ ation record ed. [email or web address] Not Available 16:18:23 03/30/20 24 05/06/2023 imagi ng/di agnos tic resul t No observ ation record ed. [email or web address] Not Available 16:19:03 03/30/20 24 05/06/2023 imagi ng/di agnos tic resul t No observ ation record ed. [email or web address] Not Available 16:19:04 03/30/20 24 06/28/2022 imagi ng/di agnos tic resul t No observ ation record ed. [email or web address] Not Available 16:19:15 03/30/20 24 09/11/2018 audio gram No observ ation record ed. [email or web address] Not Available 16:19:21 Result Notes None recorded. Problems Name Problem SNOMED Code Status Onset Date Resolution Date Notes Provider Name and Address Organization Details Recorded Time Pain of left temporoma ndibular joint 82208463571 180147 Active 2017 Arthralgi a of left temporoma ndibular joint; Note: Date Diagnosed : 8 3:52 PM (M26.622) Not Available Replaced by [facility] 4 03:03:39 Chronic rhinitis 44381224 Active 2017 Chronic rhinitis; Note: Date Diagnosed : 8 3:52 PM (J31.0) Not Available Replaced by [facility] 4 03:03:41 Headache 84232980 Active 2017 Facial pain NOS; Note: Date Diagnosed : 8 3:52 PM (R51) Not Available Replaced by [facility] 4 03:03:39 Otalgia of left ear 7793039523 Active 2017 Otalgia, left ear; Note: Date Diagnosed : 8 3:52 PM (H92.02) Not Available Replaced by [facility] 4 03:03:38 Abnormal auditory perceptio n 59611961 Active 2017 Other abnormal auditory perceptio ns, left ear; Note: Date Diagnosed : 8 3:52 PM (H93.292) Not Available Replaced by [facility] 4 03:03:39 Sensorine ural hearing loss of bilateral ears 838043975 Active 2018 Sensorine ural hearing loss, bilateral ; Note: Date Diagnosed : 09/11/2018 9:13 AM (H90.3) Not Available [facility] 4 03:03:40 Allergic rhinitis 29363106 Active 2018 Allergic Rhinitis; Note: Date Diagnosed : 11/04/2018 2:22 PM (477.9) Note: Date Diagnosed : 11/04/2018 2:22 PM (477.9) Allergi c rhinitis: Due to other allergen; Note: Date Diagnosed : 09/21/2018 9:27 AM (477.8) Note: Date Diagnosed : 09/21/2018 9:27 AM (477.8) ; Start Date : 9 Other allergic rhinitis; Note: Date Diagnosed : 10/23/2018 8:49 AM (J30.89) Note: Date Diagnosed : 10/23/2018 8:49 AM (J30.89) ; Start Date : 9 Not Available Replaced by [facility] 4 01:16:37 Migraine without aura, not refractor y 642090072 Active 2018 Migraine without aura, not intractab le, without status migrainos us; Note: Date Diagnosed : 01/22/2019 1:29 PM (G43.009) Not Available Replaced by [facility] 4 03:03:40 Acute sinusitis 95980666 Active 2018 Other acute sinusitis ; Note: Date Diagnosed : 04/28/2019 3:35 PM (J01.80) Not Available Replaced by [facility] 4 03:03:40 Impacted cerumen in left ear 55593000576 92485 Active 2021 Impacted cerumen, left ear; Note: Date Diagnosed : 04/12/2022 9:17 AM (H61.22) Not Available Replaced by [facility] 4 03:03:39 Viral screening Active 2021 Encounter for screning for COVID-19; Note: Date Diagnosed : 04/12/2022 9:17 AM (Z11.52) Not Available [facility] 4 03:03:40 Snoring 66603830 Active 2022 Snoring; Note: Date Diagnosed : 03/26/2023 9:16 AM (R06.83) Not Available [facility] 4 03:03:38 Overweigh t 802030527 Active 2022 Overweigh t; Note: Date Diagnosed : 03/26/2023 9:16 AM (E66.3) Not Available Replaced by [facility] 4 03:03:38 Obstructi ve sleep apnea syndrome 25665417 Active 2023 Obstructi ve sleep apnea (adult) (pediatri c); Note: Date Diagnosed : 08/22/2023 3:20 PM (G47.33) Not Available Replaced by [facility] 4 03:03:41 Problem Notes None recorded. Medical Equipment None Reported. Medications Name Sig Start Date Stop Date Status Note LastModified by Organization Details LastModified Time Augmentin 875 mg-125 mg tablet 07/17 completed Medicati on ID: [id number] D uration Value: 7 Prescri bed By Name: LIZZETTE Baum nd Name: Augmenti n Send Method: E-Prescr ibed Sub s Allowed: subs OK Speci al Instruct ion: 1 po bid for 10 days Med icationG enericNa me: Augmenti n Not Available Not Available Not Available Zyrtec 10 mg tablet by mouth 2021 active Medicati on ID: [id number] P rescribe d By Name: Juhi Berry nd Name: Zyrtec S end Method: E-Prescr ibed Sub s Allowed: subs OK Speci al Instruct ion: Take 1 tablet by mouth every day Medi cationGe nericNam e: Zyrtec Not Available Not Available Not Available baclofen 10 mg tablet 10/24 completed Medicati on ID: [id number] R papa: () Brand Name: baclofen Send Method: E-Prescr ibed Sub s Allowed: subs OK Medic ationGen ericName : baclofen Not Available Not Available Not Available omeprazol e 20 mg capsule,d elayed release active Medicati on ID: [id number] B rand Name: omeprazo le Send Method: E-Prescr ibed Sub s Allowed: subs OK Medic ationGen ericName : omeprazo le Not Available Not Available Not Available monteluka st 10 mg tablet TAKE 1 TABLET BY MOUTH EVERY DAY 2024 active Not Available Not Available Not Avai lable bisacodyl 5 mg tablet,de layed release TAKE 2 TABLETS BY MOUTH RIGHT BEFORE YOUR 1ST DOSE OF LIQUID PREP active Not Available Not Available No t Available azelastin e 137 mcg (0.1 %) nasal spray SQUIRT 2 SPRAYS TWICE A DAY DIRECTED active Not Available Not Available No t Available epinephri ne 0.3 mg/0.3 mL injection , auto-inje ctor 1 pen injector intramus cularly 2018 active Medicati on ID: [id number] D uration Value: 1 Prescri bed By Name: Juhi Berry nd Name: epinephr ine Send Method: E-Prescr ibed Sub s Allowed: subs OK Medic ationGen ericName : epinephr ine Not Available Not Available Not Available albuterol sulfate HFA 90 mcg/actua tion aerosol inhaler 2020 active Medicati on ID: [id number] B rand Name: albutero l sulfate Send Method: E-Prescr ibed Sub s Allowed: subs OK Speci al Instruct ion: INHALE 2 PUFFS EVERY 4 HOURS NEEDED FOR COUGH, WHEEZING OR SHORTNES S OF BREATH. Medicati onGeneri cName: albutero l sulfate Not Available Not Available Not Available nitrofura ntoin monohydra te/macroc rystals 100 mg capsule TAKE 1 CAPSULE BY MOUTH TWICE A DAY FOR 7 DAYS active Not Available Not Available No t Available carbamaze pine ER 200 mg capsule,e xtended release [id number] r 10/24 completed Medicati on ID: [id number] R papa: () Brand Name: carbamaz epine Se nd Method: E-Prescr ibed Sub s Allowed: subs OK Medic ationGen ericName : carbamaz epine Not Available Not Available Not Available tizanidin e 2 mg capsule 04/30 completed Medicati on ID: [id number] D uration Value: 90 Brand Name: tizanidi ne Send Method: E-Prescr ibed Sub s Allowed: subs OK Medic ationGen ericName : tizanidi ne Not Available Not Available Not Available Alaway 0.025 % (0.035 %) eye drops INSTILL 1 DROP INTO AFFECTED EYE TWICE A DAY (OTC NOT COVERED) 2023 active Not Available Not Available Not Avai lable GaviLyte- G 236 gram-22.7 4 gram-6.74 gram-5.86 gram oral solution PLEASE SEE ATTACHED FOR DETAILED DIRECTIO NS active Not Available Not Available No t Available buprenorp memie 5 mcg/hour weekly transderm al patch APPLY 1 TRANSDER MAL EVERY WEEK FOR 28 DAYS active Not Available Not Available No t Available buprenorp emmie 7.5 mcg/hour weekly transderm al patch APPLY 1 PATCH ONCE A WEEK active Not Available Not Available No t Available Flonase Allergy Relief 50 mcg/actua tion nasal spray,alfonzo pension 2 puff into both nostrils twice a day active Medicati on ID: [id number] D uration Value: 30 Brand Name: Flonase Allergy Relief S end Method: E-Prescr ibed Sub s Allowed: subs OK Medic ationGen ericName : Flonase Allergy Relief Not Available Not Available Not Available riboflavi n (vitamin B2) 400 mg tablet Take 1 tablet by mouth once a day 2021 active Medicati on ID: [id number] D uration Value: 30 Brand Name: riboflav in (vitamin B2) Send Method: E-Prescr ibed Sub s Allowed: subs OK Medic ationGen ericName : riboflav in (vitamin B2) Not Available Not Available Not Available magnesium 400 mg (as magnesium oxide) tablet Take 1 tablet by mouth once a day 2021 active Medicati on ID: [id number] D uration Value: 30 Brand Name: magnesiu m oxide Se nd Method: E-Prescr ibed Sub s Allowed: subs OK Medic ationGen ericName : magnesiu m oxide Not Available Not Available Not Available Vitals Date Recorded Body height Body mass index (BMI) Body weight Provider Name and Address Organization Details Last Updated DateTime 01/07/2024 149.86 cm 27.1 kg/m2 15969.38 g Mariano Ramirez [place] [facility] 01/07/2024 14:44:04 Date Recorded Body height Body mass index (BMI) Body weight Provider Name and Address Organization Details Last Updated DateTime 07/19/2024 149.86 cm 27.1 kg/m2 34503.38 g Mariano Ramirez [place] [facility] 07/19/2024 09:22:55 Social History None recorded. Functional Status None recorded. Mental Status None recorded. Family History Nothing Reported. Medical History No medical history recorded. Gynecological HistoryNo gynecological history recorded. Obstetrics History GPAL:G 0 P 0 0 0 0 Past Encounters Encounter ID Performer Location Encounter Start Date Encounter Closed Date Diagnosis/Indication Diagnosis SNOMED-CT Code Diagnosis ICD10 Code Diagnosis IMO Codes Diagnosis Note [id number] TORIE COLEMAN MD [facility] [address] [address] 01/07/2024 13:59:11 01/07/2024 15:15:09 Obstructive sleep apnea syndrome 75340116 G47.33 She is having difficulty with the pressure feeling claustroph obic and some chest tightness. She has an appointmen t in a few months with sleep medicine services. We will try a lower pressure and see if that improves her compliance and her symptoms Allergic rhinitis 510642 04 J30.9 Patient with longstandi ng history of allergic rhinitis. Will refill Astelin which she has not used for a few months [id number] TORIE COLEMAN MD [facility] [address] [address] 07/19/2024 09:19:26 07/19/2024 09:47:34 Allergic rhinitis 06738781 J30.9 Patient with longstandi ng history of allergic rhinitis. Will refill Astelin which she has not used for a few months, she can resume using it in the spring. Presently she has dryness and some sinus pressure. I have suggested saline solution 3-4 times daily and if necessary she can resume fluticason e nasal spray Obstructiv e sleep apnea syndrome 11209311 G47.33 Presently doing well with CPAP using nasal pillows for at least 6 hours per night Health Concerns Section Related Observation LastModified by Organization Detai ls LastModified Time None Recorded Concern Status LastModified by Organization Details LastModified Time None Recorded Advance Directives Directive None Recorded Payers Insurance Date Sequence Insurance Name Policy Number Policy Patel Covered Member ID Patel Member ID Guarantor Name 07/19/2024 1 [facility] [id number] Cher gutierrez [id number] Cher [place] 03/04/2024 1 [facility] (O) [id number] Cher gutierrez [id number] Cher [place] Notes Date Note Type Note Provider Name and Address Organization Details Recorded Time 01/07/2024 text/html ROS as noted in the HPI Patient having some allergy symptoms and headache due to the pollen. Previously treated with allergy drops. She has been having issues tolerating her CPAP due to the pressure. She needs to get new supplies and an adjustment in her pressure. TORIE OLSON MD [address] [place] [address],[address], [address], [facility] - [facility] 01/07/2024 15:12:54 07/19/2024 text/html Currently using CPAP successful with nasal pillows and lower pressureHx of [place] presently not using any allergy meds since martinez. Mild sinus pressure and headache. feels nasal dryness. TORIE OLSON MD [address] [place] [address],[place] [address], [place], [address], [place] [facility] 07/19/2024 09:43:33 OBGyn Episode No OBEpisode recorded.
--- OUTSIDE RECORDS SUMMARY | 2025-06-29 16:55 | XMS_ITS | Encounter Summary ---
Author Organization [facility] Address [address] [place] [address] Care Team Providers Care Taffy Puller Name Role Phone Enriqueta Leger MD Primary Care Provider [phone] Reason for Visit * Reason Onset Date Comments Provider Call Back 04/08/2024 Encounter Details Date Type Department Care Team Description 04/08/2024 Telephone Gastroenterology - [address] [place] [address] Ziggy Chance PA-C Provider Call Back Social History Tobacco Use Types Packs/Day Years [...] encounter Miscellaneous Notes * Telephone Encounter - Viji Waterman - 04/08/2024 11:54 AM EDT Patient is due for repeat ultrasound in April. Ziggy does her reminders and we mail them out. Called patient to let her know. * Telephone Encounter - Nina Jarvis - 04/08/2024 10:05 AM EDT Patient calling states she was supposed to have an ultrasound oredered after her last visit on 02/05, however nobody has contacted her. Please advise. documented in this encounter Plan of Treatment Not on file documented as of this encounter Visit Diagnoses Not on filedocumented in this encounter Additional Health Concerns Infection Onset Date Last Indicated Resolved Time COVID-19 04/29/2022 04/30/2022 documented as of this encounter Care Teams Taffy Puller Relationship Specialty Start Date End Date Enriqueta Leger MD [address] [place] [address] PCP - General Internal Medicine 11/19/21 documented as of this encounter
--- OUTSIDE RECORDS SUMMARY | 2025-06-29 16:55 | XMS_ITS | Encounter Summary ---
Author Organization [employer] [facility] Address [address] [place] [address] Care Team Providers Care Superintendent Operations Division Name Role Phone Enriqueta Leger MD Primary Care Provider [phone] Encounter Details Date Type Department Care Team Description 03/26/2024 Orders Only Medical Records [address] [place] [id number] Trinh Shane MD [address] [place] [address] [phone] Social History Tobacco Use Types Packs/Day Years [...] on file documented as of this encounter Procedures Procedure Name Priority Date/Time Associated Diagnosis Comments OUTSIDE COLONOSCOPY Routine 03/23/2024 documented in this encounter Results * OUTSIDE COLONOSCOPY (03/23/2024) Trinh Shane MD RADIOLOGY documented in this encounter Visit Diagnoses Not on filedocumented in this encounter Additional Health Concerns Infection Onset Date Last Indicated Resolved Time COVID-19 04/29/2022 04/30/2022 documented as of this encounter Care Teams Superintendent Operations Division Relationship Specialty Start Date End Date Enriqueta Leger MD [address] [place] [address] PCP - General Internal Medicine 11/19/21 documented as of this encounter
--- OUTSIDE RECORDS SUMMARY | 2025-06-29 16:55 | XMS_ITS | Encounter Summary ---
Author Organization [facility] Address [address] [place] [address] Care Team Providers Care Setter Cold Rolling Machine Name Role Phone Enriqueta Leger MD Primary Care Provider [phone] Encounter Details Date Type Department Care Team Description 05/04/2024 Telephone Gastroenterology - [address] [address] Ziggy Chance PA-C Social History Tobacco Use Types Packs/Day [...] encounter Miscellaneous Notes * Telephone Encounter - Ziggy Chance PA-C - 05/04/2024 8:09 AM EDT Fatty liver needs labs and ultrasound documented in this encounter Plan of Treatment Not on file documented as of this encounter Visit Diagnoses Diagnosis Fatty liver- Primary Other chronic nonalcoholic liver disease documented in this encounter Additional Health Concerns Infection Onset Date Last Indicated Resolved Time COVID-19 04/29/2022 04/30/2022 documented as of this encounter Care Teams Setter Cold Rolling Machine Relationship Specialty Start Date End Date Enriqueta Leger MD [address] [place] [address] PCP - General Internal Medicine 11/19/21 documented as of this encounter
--- OUTSIDE RECORDS SUMMARY | 2025-06-29 16:55 | XMS_ITS | Encounter Summary ---
Author Organization [facility] Address [address] [place] [address] Care Team Providers Care Mailroom Clerk Name Role Phone Mary Lou Starks MD Primary Care Provider Un available Enriqueta Leger MD Primary Care Provider [phone] Reason for Visit * Reason Comments E-prescribe Rx Request Encounter Details Date Type Department Care Team Description 11/17/2019 Refill Medicine/Pediatrics - [address] [address] Mary Lou Starks MD E-prescribe Rx Request Social History Tobacco Use Types Packs/Day Years [...] Miscellaneous Notes * Telephone Encounter - Maureen Conde L.P.N. - 11/17/2019 11:14 AM EDT UTD please review and sign * Telephone Encounter - Aura Soren - 11/17/2019 11:08 AM EDT Patient would like script to be: E-PRESCRIBED/FAXED TO PHARMACY WHEN WAS THE PATIENT'S LAST APPOINTMENT IN ADULT MEDICINE? 06-16-19 WHEN WAS THE LAST TIME THE PATIENT SAW THEIR PCP? Same as above Does patient have an upcoming appointment? no (THE MEDICATION REQUESTED IS ON THE MED LIST ABOVE) All of the medications requested were on the CURRENT MEDS list Did you check the Pharmacy information above?: YES Patient wants: 30 -day supply Is this a mail order prescription request ? NO If the refill is from a FAXED refill request what is the RX # listed on the fax? N/A Patients current insurance carrier is: Payor: [employer] / Plan: [employer]/OPTTrekCafe/$20/12V/HMO / Product Type: HMO [id number] documented in this encounter Plan of Treatment Not on file documented as of this encounter Visit Diagnoses Not on filedocumented in this encounter Additional Health Concerns Infection Onset Date Last Indicated Resolved Time COVID-19 04/29/2022 04/30/2022 documented as of this encounter Care Teams Mailroom Clerk Relationship Specialty Start Date End Date Mary Lou Starks MD PCP - General Internal Medicine 09/21/14 Enriqueta Leger MD [address] [place] [address] PCP - General Internal Medicine 11/19/21 documented as of this encounter
== END 2025-06-29 09:33 | disposition home or self-care (01) ==
PROVIDERS: PCP Internal Medicine; Visit Provider Physical Medicine & Rehabilitation
DX: M54.12 Radiculopathy, cervical region (principal); M48.02 Spinal stenosis, cervical region; M77.11 Lateral epicondylitis, right elbow
CPT/HCPCS: 99214

== ENCOUNTER → 2025-06-29 09:03 | Outpatient (BNVA) | payer OTHER, SELFPAY | PROVIDERS: PCP Internal Medicine; Visit Provider Physical Medicine & Rehabilitation | DX: M54.12 Radiculopathy, cervical region (principal); M25.512 Pain in left shoulder; M79.622 Pain in left upper arm; G89.29 Other chronic pain; M48.02 Spinal stenosis, cervical region; M77.11 Lateral epicondylitis, right elbow | CPT/HCPCS: 99212 ==